=== PATIENT | female | born 1960 | race Caucasian/White ===

== ENCOUNTER 2016-07-06 12:08 | Emergency (ER) | payer MEDICARE, OTHER ==
[~2016-07-06 12:08] MED LIST: NO MEDICATIONS; OMEPRAZOLE40 M1 PO
== END 2016-07-06 12:29 | disposition home or self-care (01) ==
LOC: CFTX 12:08
DX: K64.4 Residual hemorrhoidal skin tags (principal); I10 Essential (primary) hypertension; K21.9 Gastro-esophageal reflux disease without esophagitis; Z98.890 Other specified postprocedural states
CPT/HCPCS: 99283